=== PATIENT | female | born 1990 | race African-American/Black ===

== ENCOUNTER 2018-08-29 17:13 | Emergency (ER) | payer OTHER ==
[~2018-08-29] VITALS: Ht 170.2 cm; Wt 63.5 kg
[~2018-08-29 17:13] MED LIST: APAP500 PO; COLACE 100 MG100 MG PO; DERMOPLAST SPRA56 ML; HYDROCORTISONE30 G9 RECTAL; IBUPROFEN 800800 M1 PO; IROSPAN 24/6 T1 EACH PO; LANOLIN56 GM; ONDANSETRON HCL4 M2 PO; PHENERGAN 25 MG25 M1 PO; PROCARDIA XL30 MG PO; TUCKS MEDICATE1 EAC1 TOP
[2018-08-29 18:38] LABS: URINE BILIRUBIN NEGATIVE (Negative); URINE BLOOD NEGATIVE (Negative); URINE CLARITY CLEAR; URINE COLOR YELLOW; URINE GLUCOSE-RANDOM* NEGATIVE (Negative); URINE KETONES NEGATIVE (Negative); URINE NITRITE-REFLEX NEGATIVE (Negative); URINE PROTEIN (DIPSTICK) NEGATIVE (Negative); URINE SPECIFIC GRAVITY >= 1.030 (1.005-1.035)
[2018-08-29 18:39] LABS: URINE LEUKOCYTES-REFLEX 1+ (Negative)
[2018-08-29 18:46] LABS: CASTS None Seen /LPF (None Seen); CRYSTALS None Seen /LPF (None Seen); SQUAMOUS >10 Many /LPF (0-3); URINE RBC 0-2 Rare /HPF (0-2); URINE WBC-REFLEX 6-15 Few /HPF (0-5)
[2018-08-29 18:47] LABS: ABSOLUTE NEUTROPHILS 8.7 thou/uL (1.4-8.2); BASOPHILS 0.3 % (0.0-2.0); EOSINOPHILS 1.1 % (0.0-3.0); HEMATOCRIT 36.2 % (37.0-47.0); HEMOGLOBIN 12.2 gm/dL (12.0-15.0); LYMPHOCYTES 13.7 % (24.0-44.0); MCH 27.6 pg (26.0-34.0); MCHC 33.9 g/dL (28.0-37.0); MCV 81.5 fL (80.0-100.0); MONOCYTES 7.5 % (1.0-8.0); PLATELET COUNT 228 thou/uL (150-400); POLYS 77.4 % (36.0-66.0); RBC 4.43 mil/uL (4.20-5.00); RDW 21.1 % (10.5-14.5); WBC 11.2 thou/uL (4.0-11.0)
[2018-08-29 18:47] LABS: BACTERIA-REFLEX 1-9 Few /HPF (None Seen)
[2018-08-29 18:52] LABS: CALCIUM 9.5 mg/dL (8.5-10.1); CREATININE 0.7 mg/dL (0.6-1.0); POTASSIUM 3.4 mmol/L (3.5-5.1)
[2018-08-29 20:01] LABS: ANISOCYTOSIS 1+
[2018-08-29] MEDS ORDERED: PHENERGAN 25 MG25 M1 PO (20:45)
[2018-08-29] MEDS ORDERED: KEFLEX500 M1 PO (20:45)
[2018-08-29 21:10] VITALS: BP 107/57
== END 2018-08-29 21:26 | disposition home or self-care (01) ==
LOC: ER 17:13
PROVIDERS: Physician Assistant
DX: O21.8 Other vomiting complicating pregnancy (principal); O23.41 Unspecified infection of urinary tract in pregnancy, first trimester; Z3A.09 9 weeks gestation of pregnancy